=== PATIENT | male | born 1950 | race Caucasian/White ===

== ENCOUNTER 2016-10-30 13:09 | Observation (INO) | payer MEDICARE, OTHER ==
[2016-10-30] MEDS ORDERED: ASPIRIN 81 MG CHEWABLE TABLETS PO ONE (13:18)
--- NOTE | 2016-10-30 13:18 | PDOC ---
History of Present Illness - General Chief Complaint: Chest Pain Stated Complaint: CHEST PAIN Time Seen by Provider: 10/30/16 13:11 History Source: Patient Exam Limitations: No Limitations - History of Present Illness Initial Comments: 10/30/16 13:26 This pt is a 66 yo M with a past medical history of CAD s/p a "small" KS and stent x 2 last year p/w chest pain since last night. The patient reports that the symptoms began last night at 10PM while . The patient reports that he is experiencing a substernal aching pain that has persisted until now. Pain radiates to the left shoulder Pain reproducible when palpating the center of the chest No associated nausea, diaphoresis, radiation to the back or jaw Upon arrival to the ER, pt stated pain was 4/10 Pain has mostly resolved since getting Nitro Pt denies chest wall trauma or bruising. 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 PMH: CAD, HTN PSH: denies Meds: please see MAR ALL: NKDA Social: Pt denies alcohol use, tobacco use, or recreational drug use. 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 HEAD, EYES, EARS, NOSE AND THROAT: No: change in vision, ear pain, discharge, sore throat, throat swelling. CARDIOVASCULAR: (+) chest pain No: lightheadedness, palpitations, syncope RESPIRATORY: No: cough, shortness of breath, wheezing, hemoptysis, stridor. GASTROINTESTINAL: No: nausea, vomiting, diarrhea, abdominal cramping, rectal bleeding, constipation. GENITOURINARY: No: dysuria, hematuria, frequency, urgency, flank pain. MUSCULOSKELETAL: No: back pain, neck pain, joint pain, muscle swelling or pain SKIN AND BREASTS: No: lesions, pallor, rash or easy bruising. NEUROLOGIC: No: headache, vertigo, paresthesias, weakness ENDOCRINE: No: unexplained weight gain or loss HEMATOLOGIC/LYMPHATIC: No: anemia, easy bleeding, swelling nodes. BLOOD PRESSURE r: 158/91 l: 189/99 GENERAL: The patient is in no acute distress. HEAD: Normal with no signs of trauma. EYES: PERRLA, EOMI, sclera anicteric, conjunctiva clear. ENT: Ears normal, nares patent, oropharynx clear without exudates. Moist mucous membranes. NECK: Normal range of motion, supple without lymphadenopathy, JVD, or masses. LUNGS: Breath sounds equal, clear to auscultation bilaterally. No wheezes, and no crackles. HEART: Regular rate and rhythm, normal S1 and S2 without murmur, rub or gallop. (+) chest wall tenderness ABDOMEN: Soft, nontender, normoactive bowel sounds. No guarding, no rebound. No masses palpable. EXTREMITIES: Normal range of motion, no edema. No clubbing or cyanosis. No erythema, or tenderness. NEUROLOGICAL: Cranial nerves II through XII grossly intact. Normal speech. No focal neurological deficits. MUSCULOSKELETAL: Back non-tender to palpation, no CVA tenderness SKIN: Warm, Dry, normal turgor, no rashes or lesions noted. 10/30/16 13:42 10/30/16 13:45 10/30/16 13:48 10/30/16 14:31 Past History - Past Medical History Allergies/Adverse Reactions: Allergies Allergy/AdvReac Type Severity Reaction Status Date / Time No Known Allergies Allergy Verified 10/30/16 13:14 Home Medications: Ambulatory Orders Clopidogrel Bisulfate [Plavix -] 75 mg PO DAILY 10/30/16 Losartan Potassium [Cozaar -] 50 mg PO DAILY 10/30/16 Metoprolol Succinate [Toprol Xl] 100 mg PO DAILY 10/30/16 - Surgical History Cardiac Surgery: Yes (STENTX2) - Psycho/Social/Smoking Cessation Hx Anxiety: No Suicidal Ideation: No Smoking History: Never smoked Hx Alcohol Use: No Drug/Substance Use Hx: No Substance Use Type: None Cardiac Specific PMH - Complaint Specific PMHX Myocardial Infarction: Yes (STENTS 2) *Physical Exam - Vital Signs Last Vital Signs Temp Pulse Resp BP Pulse Ox 98.6 F 57 L 18 160/88 100 10/31/16 05:00 10/31/16 05:00 10/31/16 05:00 10/31/16 05:00 10/30/16 19:26 Heart Score/ECG Review - History History: Highly suspicious - Electrocardiogram EKG: Non specific repolarization disturbance - Age Age: >/= 65 - Risk Factors Risk Factors Heart Score: Yes Hx Hypertension, Yes Hx Obesity Based on the list above the patient has:: 1-2 risk factors - Troponin Troponin: </= normal limit - Score Heart Score - Total: 6 #1 ECG reviewed & interpreted by me at: 13:17 10/30/16 13:17 Twelve-lead EKG was performed and reviewed by me. There is normal sinus rhythm with a normal rate of 69 bpm. The axis is normal. The intervals are normal - pr: 146ms, QRS:70ms, QTc:422ms. There are no ST elevations or depressions. T wave biphasic v4-v5 ED Treatment Course - LABORATORY CBC & Chemistry Diagram: 10/30/16 13:21 10/30/16 13:21 - ADDITIONAL ORDERS Additional order review: 10/30/16 13:21 RBC 4.91 MCV 91.0 MCHC 32.2 RDW 12.7 MPV 8.7 Neutrophils % 45.5 Lymphocytes % 43.7 H Monocytes % 8.3 Eosinophils % 1.4 Basophils % 1.1 - RADIOLOGY Radiology Studies Ordered: Category Date Time Status CHEST X-RAY PORTABLE* [RAD] Stat Radiology 10/30/16 13:20 Completed - Medications Given in the ED: ED Medications Discontinued Medications Generic Name Dose Route Start Last Admin Trade Name Freq PRN Reason Stop Dose Admin Aspirin 162 mg 10/30/16 13:18 10/30/16 13:30 Asa - PO 10/30/16 13:19 162 mg ONCE ONE Administration Losartan Potassium 50 mg 10/30/16 18:17 10/30/16 18:59 Cozaar - PO 10/30/16 18:18 50 mg ONCE ONE Administration Nitroglycerin 0.4 mg 10/30/16 13:19 10/30/16 13:30 Nitrostat - SL 10/30/16 13:20 0.4 mg ONCE ONE Administration Nitroglycerin 0.4 mg 10/30/16 14:27 10/30/16 14:37 Nitrostat - SL 10/30/16 14:28 0.4 mg ONCE ONE Administration Medical Decision Making - Medical Decision Making Will do: labs CXR EKG Pt is high risk, would place on observation 10/30/16 13:37 Laboratory Tests 10/30/16 13:21 WBC 6.4 Hgb 14.4 Hct 44.7 Plt Count 271 Neutrophils % 45.5 Lymphocytes % 43.7 H 10/30/16 13:45 Laboratory Tests 10/30/16 10/30/16 10/30/16 12:40 13:21 13:21 INR 1.01 Sodium 135 L Potassium 3.7 Chloride 100 Carbon Dioxide 27 BUN 17 Creatinine 1.0 Random Glucose 90 Creatine Kinase 124 Troponin I < 0.03 L Will repeat blood pressures ? need for CTA r/o dissection? CXR with NO mediastinal widening Repeated: L: 164/90 R: 172/92 10/30/16 14:36 case reviewed with FIELD KILN BURNER dajuan Will place on observation, telemetry Call placed to Freelance Designer 10/30/16 14:38 Clinical impression: Chest pain 10/30/16 15:39 *DC/Admit/Observation/Transfer Diagnosis at time of Disposition: Chest pain Qualifiers: Chest pain type: unspecified Qualified Code(s): R07.9 - Chest pain, unspecified - Discharge Dispostion Condition at time of disposition: Stable Admit: Yes
[2016-10-30] MEDS ORDERED: NITROGLYCERIN SUBLINGUAL 1/150 0.4 MG TAB SL ONE ×2 (13:19→14:27)
[2016-10-30] MEDS ORDERED: ASPIRIN 81 MG CHEWABLE TABLETS ONE (13:27)
[2016-10-30] MEDS ORDERED: NITROGLYCERIN SUBLINGUAL 1/150 0.4 MG TAB ONE (13:28)
[2016-10-30 13:33] LABS: BASOPHIL 1.1 % (0-2.0); EOSINOPHIL 1.4 % (0-4.5); MCH 29.3 pg (25.7-33.7); MCHC 32.2 g/dl (32.0-35.9); MEAN PLT VOLUME 8.7 fl (7.5-11.1); NEUTROPHILS 45.5 % (42.8-82.8); PLATELET COUNT 271 K/MM3 (134-434); RDW 12.7 % (11.9-15.9); WHITE BLOOD COUNT 6.4 K/mm3 (4.0-10.0)
[2016-10-30 13:50] LABS: INR 1.01 (0.82-1.09)
[2016-10-30 13:54] LABS: ALBUMIN 3.9 g/dl (3.5-5.0); ALK PHOS 83 U/L (32-92); ANION GAP 8 (8-16); BILIRUBIN,TOTAL 1.2 mg/dl (0.2-1.0); CALCIUM 9.2 mg/dl (8.4-10.2); CO2 27 mmol/L (22-28); GLUCOSE,RANDOM 90 mg/dl (74-106); SGOT/AST 22 U/L (10-42); SGPT/ALT 20 U/L (10-40); TOT PROT 6.7 g/dl (6.4-8.3)
[2016-10-30 13:55] LABS: CPK(DFH) 124 IU/L (38-174)
[2016-10-30 14:18] LABS: TROPONIN I (DFP) < 0.03 ng/ml (0.03-0.50)
[2016-10-30 15:58] VITALS: BMI 29.2
--- NOTE | 2016-10-30 18:06 | CONSULT ---
Consult Consult Specialty:: Cardiology Referred by:: Dr Cuevas Reason for Consultation:: CP - History of Present Illness History of Present Illness: 66 yo male with history of HTN, presented to ER at [facility] on 01/16/16 with chest pain while sleeping -> found to have inferior STEMI -> cath showed 99% mRCA -> PCI/SAURABH stents X 2. EF was normal He now presents with resting CP which started since 10 PM last night and has been persistent at 01/04-. received 2 SL NTG -. improved to 1-11/06. No accompanying symptoms except for a headache last night. He took his BP today - . was 199/90 (was lower last night when he had the PATEL) -. in eER , his BP was 200/110. 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 He walks 2-3 times a week w/o symptoms. Cardiac cath (01/16/16) 99% stenosis in the mid RCA. Stenosis opened up with 2 stents. Stent sizes: Resolute 3.5mm x 12mm 4.0 mm x 9 mm Balloon expanded the stents. CRISTIANE 3 flow achieved No complications were noted Access site closed with angioseal. Other lesions: 80% lesion in ramus intermedius branch 85% lesion in prox OM1 80% lesion in the distal OM1 LVEDP 24 Echo 01/17/16 Normal study. Findings Procedure Quality: Acoustic windows are overall adequate. Left Atrium: Normal left atrial size. Left Ventricle: Normal left ventricular size. Normal left ventricular wall motion and ejection fraction. Estimated ejection fraction: 65.0 %. Right Atrium: Normal right atrial size. Right Ventricle: Normal right ventricular size. Normal right ventricular function. Aortic Valve: Normal aortic valve. Mitral Valve: Normal mitral valve. Tricuspid Valve: Normal tricuspid valve. Mild tricuspid valve regurgitation. Pulmonic Valve: Normal pulmonic valve. Arteries: Normal sized aortic root. Pericardium/Pleura: No pericardial effusion. - History Source History Provided By: Patient - Past Medical History Cardio/Vascular: Yes: CAD (inf STEMI in 01/10 -. RCA stents), HTN - Alcohol/Substance Use Hx Alcohol Use: Yes (rarely) History of Substance Use: reports: None - Smoking History Smoking history: Never smoked - Social History Place of : Other () Home Medications - Allergies Allergies/Adverse Reactions: Allergies Allergy/AdvReac Type Severity Reaction Status Date / Time No Known Allergies Allergy Verified 10/30/16 13:14 - Home Medications Home Medications: Ambulatory Orders Clopidogrel Bisulfate [Plavix -] 75 mg PO DAILY 10/30/16 Losartan Potassium [Cozaar -] 50 mg PO DAILY 10/30/16 Metoprolol Succinate [Toprol Xl] 100 mg PO DAILY 10/30/16 Family Disease History - Family Disease History Family History: Denies (no premature CAD) Review of Systems - Review of Systems Constitutional: reports: No Symptoms Eyes: reports: No Symptoms HENT: reports: No Symptoms Neck: reports: No Symptoms Cardiovascular: reports: Chest Pain Respiratory: reports: No Symptoms Gastrointestinal: reports: No Symptoms Genitourinary: reports: No Symptoms Integumentary: reports: No Symptoms Neurological: reports: Headache Physical Exam Vital Signs: Vital Signs Temperature 98.7 F 10/30/16 15:31 Pulse Rate 57 L 10/30/16 15:31 Respiratory Rate 18 10/30/16 15:31 Blood Pressure 166/89 10/30/16 15:31 O2 Sat by Pulse Oximetry (%) 100 10/30/16 15:31 Constitutional: Yes: No Distress Eyes: Yes: Conjunctiva Clear HENT: Yes: Atraumatic Neck: Yes: Supple Cardiovascular: Yes: Regular Rate and Rhythm. No: Murmur Respiratory: Yes: CTA Bilaterally Gastrointestinal: Yes: Normal Bowel Sounds, Soft. No: Tenderness Edema: No Peripheral Pulses WNL: Yes Neurological: Yes: Alert, Oriented Psychiatric: Yes: Alert, Oriented Imaging - Results Chest X-ray: Report Reviewed, Image Reviewed EKG: Report Reviewed, Image Reviewed (SR w/o acute changes) Assessment/Plan 66 yo male with HTN, CAD -. inf STEMI in 01/10 -. RCA stents, here with 16 hr of CP -. EKG w/o acute changes and CE neg X1. BP was very high however, a likely culprit,. Pt says he's been under a lot of stress because of tax season and thinks that may be the issue. Certainly stress may have led to the elevated BP (which he says is usually 130s/ 80s), causing CP. No evidence of acute Mi so far. No CHF Doubt aortic dissection -. CXR not suggestive and pt HD stable Consider esophageal/stomach etiology Should be on statin -. stopped by PMD Rec: Losartan 50 now Continue toprol XL 100/d Increase losartan to 100 daily Continue ASA and plavix Fasting lipids -> statin dose accordingly Consider empiric PPI. Thanks! We'll follow!
[2016-10-30] MEDS ORDERED: LOSARTAN POTASSIUM 50 MG TABLET (FP) PO ONE (18:17)
--- NOTE | 2016-10-30 19:59 | HP ---
CHIEF COMPLAINT: Chest Pain PCP: Dr. May Delivery Engineer: Devin HISTORY OF PRESENT ILLNESS: This is a 66 year old man with a past medical history of HTN, CAD (PCI/SAURABH stents X 2). Who presents to the emergency department with chest pain x last night. Patient reports while at rest he began to have midsternal chest pressure radiating to his left arm without SOB. Patient reports that the pain was constant and continued into this afternoon. Patient states" the pain was similar to when I had my heart attack". Patient reports decrease pain and pressure since being medicated in the ED. Patient denies fever, chills, cough, SOB, AP, N/V/D, constipation, dysuria. ER course was notable for: (1) Cardiac Enzyme negx1 (2) EKG- NSR Nonspecific T wave abnormality (3) Chest Xray- No acute pathology Recent Travel: None PAST MEDICAL HISTORY: HTN CAD PAST SURGICAL HISTORY: PCI/SAURABH stents x2 Social History: Smoking: Never Alcohol: Former Drugs: None Lives with family Family History: Cardiac: Mother, Brother, Sister Diabetes: Brother Allergies No Known Allergies Allergy (Verified 10/30/16 13:14) HOME MEDICATIONS: Home Medications Medication Instructions Recorded Clopidogrel Bisulfate [Plavix -] 75 mg PO DAILY 10/30/16 Losartan Potassium [Cozaar -] 50 mg PO DAILY 10/30/16 Metoprolol Succinate [Toprol Xl] 100 mg PO DAILY 10/30/16 REVIEW OF SYSTEMS CONSTITUTIONAL: Absent: fever, chills, diaphoresis, generalized weakness, malaise, loss of appetite, weight change HEENT: Absent: rhinorrhea, nasal congestion, throat pain, throat swelling, difficulty swallowing, mouth swelling, ear pain, eye pain, visual changes CARDIOVASCULAR: chest pain Absent: syncope, palpitations, irregular heart rate, lightheadedness, peripheral edema RESPIRATORY: Absent: cough, shortness of breath, dyspnea with exertion, orthopnea, wheezing, stridor, hemoptysis GASTROINTESTINAL: Absent: abdominal pain, abdominal distension, nausea, vomiting, diarrhea, constipation, melena, hematochezia GENITOURINARY: Absent: dysuria, frequency, urgency, hesitancy, hematuria, flank pain, genital pain MUSCULOSKELETAL: Absent: myalgia, arthralgia, joint swelling, back pain, neck pain SKIN: Absent: rash, itching, pallor HEMATOLOGIC/IMMUNOLOGIC: Absent: easy bleeding, easy bruising, lymphadenopathy, frequent infections ENDOCRINE: Absent: unexplained weight gain, unexplained weight loss, heat intolerance, cold intolerance NEUROLOGIC: Absent: headache, focal weakness or paresthesias, dizziness, unsteady gait, seizure, mental status changes, bladder or bowel incontinence PSYCHIATRIC: Absent: anxiety, depression, suicidal or homicidal ideation, hallucinations. PHYSICAL EXAMINATION Vital Signs - 24 hr 10/30/16 15:31 Temperature 98.7 F Pulse Rate 57 L Respiratory 18 Rate Blood Pressure 166/89 O2 Sat by Pulse 100 Oximetry (%) GENERAL: Awake, alert, and fully oriented, in no acute distress. HEAD: Normal with no signs of trauma. EYES: Pupils equal, round and reactive to light, extraocular movements intact, sclera anicteric, conjunctiva clear. No lid lag. EARS, NOSE, THROAT: Ears normal, nares patent, oropharynx clear without exudates. Moist mucous membranes. NECK: Normal range of motion, supple without lymphadenopathy, JVD, or masses. LUNGS: Breath sounds equal, clear to auscultation bilaterally. No wheezes, and no crackles. No accessory muscle use. HEART: Regular rate and rhythm, normal S1 and S2 without murmur, rub or gallop. Non-reproducible CP ABDOMEN: Soft, nontender, not distended, normoactive bowel sounds, no guarding, no rebound, no masses. No hepatomegaly or splenomegaly. MUSCULOSKELETAL: Normal range of motion at all joints. No bony deformities or tenderness. No CVA tenderness. UPPER EXTREMITIES: 2+ pulses, warm, well-perfused. No cyanosis. No clubbing. Cap refill <2 seconds. No peripheral edema. LOWER EXTREMITIES: 2+ pulses, warm, well-perfused. No calf tenderness. No peripheral edema. NEUROLOGICAL: Cranial nerves II-XII intact. Normal speech. Normal gait. PSYCHIATRIC: Cooperative. Good eye contact. Appropriate mood and affect. SKIN: Warm, dry, normal turgor, no rashes or lesions noted. Laboratory Results - last 24 hr 10/30/16 10/30/16 10/30/16 12:40 13:21 13:21 WBC 6.4 RBC 4.91 Hgb 14.4 Hct 44.7 MCV 91.0 MCHC 32.2 RDW 12.7 Plt Count 271 MPV 8.7 Neutrophils % 45.5 Lymphocytes % 43.7 H Monocytes % 8.3 Eosinophils % 1.4 Basophils % 1.1 INR 1.01 Sodium Potassium Chloride Carbon Dioxide Anion Gap BUN Creatinine Creat Clearance w eGFR Random Glucose Calcium Magnesium Total Bilirubin AST ALT Alkaline Phosphatase Creatine Kinase 124 Troponin I < 0.03 L Total Protein Albumin 10/30/16 13:21 WBC RBC Hgb Hct MCV MCHC RDW Plt Count MPV Neutrophils % Lymphocytes % Monocytes % Eosinophils % Basophils % INR Sodium 135 L Potassium 3.7 Chloride 100 Carbon Dioxide 27 Anion Gap 8 BUN 17 Creatinine 1.0 Creat Clearance w eGFR > 60 Random Glucose 90 Calcium 9.2 Magnesium 2.0 Total Bilirubin 1.2 H AST 22 ALT 20 Alkaline Phosphatase 83 Creatine Kinase Troponin I Total Protein 6.7 Albumin 3.9 ASSESSMENT/PLAN: This is a 66 y/o man with a PMHs of: HTN, CAD (PCI/SAURABH stents x2). Who presented to the ED with Chest Pain x 1 day. Placed on Telemetry Observation for Chest Pain r/o ACS for further evaluation of their emergent condition. Plan: 1. Chest Pain r/o ACS - Hx [place], (PCI/SAURABH stents x2) - HEART Score 6 - Continue cardiac monitoring - CE neg x1 - Serial Enzymes - Cardiology following - NTG SLx2, Asa, Losartan given in ED - Will continue Asa, BB, Plavix, and Losartan increased dose per Cardiology recommendation - Last Echo 01/17/16 normal study 2. Hypertension - Monitor BP - Continue home meds - Low Na Diet - Monitor renal function 3. F/E/N - Tolerates PO fluids - Replete lytes prn - Low Na diet 4. DVT/PPI Prophylaxis - OOB - SCDs - Consider ACs if LOS > 48 hrs - PPI Code Status: Full Code Problem List - Problem (1) Chest pain Code(s): R07.9 - CHEST PAIN, UNSPECIFIED Qualifiers: Chest pain type: unspecified Qualified Code(s): R07.9 - Chest pain, unspecified (2) HTN (hypertension) Code(s): I10 - ESSENTIAL (PRIMARY) HYPERTENSION (3) CAD (coronary artery disease) Code(s): I25.10 - ATHSCL HEART DISEASE OF [place] CORONARY ARTERY W/O ANG PCTRS (4) DVT prophylaxis Code(s): [id number] - Visit type - Emergency Visit Emergency Visit: Yes ED Registration Date: 10/30/16 Care time: The patient presented to the Emergency Department on the above date and was hospitalized for further evaluation of their emergent condition. - New Patient This patient is new to me today: Yes Date on this admission: 10/30/16 - Critical Care Critical Care patient: No
[2016-10-30 21:30] LABS: CPK(DFH) 108 IU/L (38-174)
[2016-10-30 21:52] LABS: TROPONIN I (DFP) < 0.03 ng/ml (0.03-0.50)
[2016-10-30] MEDS: FAMOTIDINE 20 MG/50 ML IVPB 50 ML IVPB SCH (21:56)
[2016-10-31 06:27] VITALS: TEMP 98.6
[2016-10-31 07:01] LABS: TROPONIN I < 0.02 ng/ml (0.00-0.05)
--- NOTE | 2016-10-31 07:26 | PN ---
Progress Note, Physician History of Present Illness: No chest pain. Doing well. - Current Medication List Current Medications: Active Medications Aspirin (Asa -) 81 mg PO DAILY [facility] Clopidogrel Bisulfate (Plavix -) 75 mg PO DAILY [facility] Famotidine/Sodium Chloride (Pepcid 20 Mg Premixed Ivpb -) 50 mls @ 100 mls/hr IVPB BID [facility] Last Admin: 10/30/16 21:56 Dose: 100 mls/hr Losartan Potassium (Cozaar -) 100 mg PO DAILY [facility] Metoprolol Succinate (Toprol Xl -) 100 mg PO DAILY [facility] - Objective Vital Signs: Vital Signs Temperature 98.6 F 10/31/16 05:00 Pulse Rate 57 L 10/31/16 05:00 Respiratory Rate 18 10/31/16 05:00 Blood Pressure 160/88 10/31/16 05:00 O2 Sat by Pulse Oximetry (%) 100 10/30/16 19:26 Constitutional: Yes: Well Nourished, No Distress Eyes: Yes: Conjunctiva Clear, EOM Intact HENT: Yes: Atraumatic, Normocephalic Cardiovascular: Yes: Regular Rate and Rhythm Respiratory: Yes: CTA Bilaterally Gastrointestinal: Yes: Normal Bowel Sounds, Soft. No: Tenderness Edema: No Neurological: Yes: Alert, Oriented, Cran Nerves II-XII Intact Labs: INR, PTT INR 1.01 (0.82-1.09) 10/30/16 13:21 Assessment/Plan 66 yo male with HTN, inferior STEMI in 12/2015 -> PCI [facility] RCA at [facility]. Admitted with resting chest pain and elevated BP. Elevated BP likely due to increased stress during season. No ischemic ECG changes and cardiac enzymes (-) x3. 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 Patient was instructed to make sooner appt than his currently scheduled appt on 11/24/16. Would discharge patient on the higher dose of losartan 100 mg po daily. Given first dose now. Continue metoprolol succinate 100mg po daily. Continue aspirin and Plavix. Patient should ideally be in statin therapy but will defer restarting this medication to patient's PMD, who reportedly stopped this medication. Will see prn. Call with questions.
[2016-10-31] MEDS: LOSARTAN POTASSIUM 50 MG TABLET (FP) PO SCH ×2 (07:45→10:38)
[2016-10-31 08:14] VITALS: PULSE 62
[2016-10-31 08:15] LABS: BASOPHIL 0.6 % (0-2.0); EOSINOPHIL 2.1 % (0-4.5); MCH 28.9 pg (25.7-33.7); MCHC 31.1 g/dl (32.0-35.9); MEAN CELL VOLUME 92.9 fl (80-96); MEAN PLT VOLUME 8.8 fl (7.5-11.1); NEUTROPHILS 44.7 % (42.8-82.8); PLATELET COUNT 267 K/MM3 (134-434); RDW 12.8 % (11.9-15.9); WHITE BLOOD COUNT 4.7 K/mm3 (4.0-10.0)
[2016-10-31 08:22] LABS: CALCIUM 9.2 mg/dl (8.4-10.2); CREATININE 1.1 mg/dl (0.6-1.3); PHOSPHOROUS 3.9 mg/dl (2.5-4.6)
[2016-10-31 08:25] LABS: CHOLESTEROL 189 mg/dl
[2016-10-31] MEDS ORDERED: ASPIRIN 81 MG CHEWABLE TABLETS PO SCH (10:00)
[2016-10-31] MEDS ORDERED: METOPROLOL SUCCINATE 100 MG TAB.SR.24H (FP) PO SCH (10:00)
[2016-10-31] MEDS ORDERED: CLOPIDOGREL BISULFATE 75 MG TABLET (FP) PO SCH (10:00)
[2016-10-31] MEDS ORDERED: LOSARTAN POTASSIUM 50 MG TABLET (FP) PO SCH (10:00)
[2016-10-31 10:22] VITALS: BP 168/87
--- NOTE | 2016-10-31 10:25 | DS ---
Physical Exam: SUBJECTIVE: Patient seen and examined. currently asymptomatic. states pain resolved by arrival to the ER. had similar episode when he had his stents placed. he was asymptomatic to the days leading up to today. walks 45 minutes outside daily (up and down hills) in the cold and never experiences CP or SOB. has not had stress test since his stents were placed last year. claims medication compliance. is unaware why he is not on statin therapy. states his PMD told him to stop but does not know why. denies any muscle aches OBJECTIVE: Vital Signs Period Temp Pulse Resp BP Sys/Fuller Pulse Ox Last 24 Hr 98.3 F-98.7 F 57-65 18-18 150-166/82-93 96-100 PHYSICAL EXAM GENERAL: The patient is awake, alert, and fully oriented, in no acute distress. HEAD: Normal with no signs of trauma. EYES: PERRL, extraocular movements intact, sclera anicteric, conjunctiva clear. ENT: Ears normal, nares patent, oropharynx clear without exudates, moist mucous membranes. NECK: Trachea midline, full range of motion, supple. LUNGS: Breath sounds equal, clear to auscultation bilaterally, no wheezes, no crackles, no accessory muscle use. HEART: Regular rate and rhythm, S1, S2 without murmur, rub or gallop. ABDOMEN: Soft, nontender, nondistended, normoactive bowel sounds, no guarding, no rebound, no hepatosplenomegaly, no masses. EXTREMITIES: 2+ pulses, warm, well-perfused, no edema. NEUROLOGICAL: Cranial nerves II through XII grossly intact. Normal speech, gait not observed. PSYCH: Normal mood, normal affect. SKIN: Warm, dry, normal turgor, no rashes or lesions noted. LABS Laboratory Results - last 24 hr 10/30/16 10/31/16 10/31/16 21:00 05:00 05:00 WBC RBC Hgb Hct MCV MCHC RDW Plt Count MPV Neutrophils % Lymphocytes % Monocytes % Eosinophils % Basophils % Sodium Potassium Chloride Carbon Dioxide Anion Gap BUN Creatinine Random Glucose Calcium Phosphorus Magnesium Creatine Kinase 108 Cancelled 87 Troponin I < 0.03 L Cancelled < 0.02 Triglycerides Cholesterol Total LDL Cholesterol HDL Cholesterol 10/31/16 10/31/16 10/31/16 07:15 07:15 07:15 WBC 4.7 RBC 4.72 Hgb 13.6 Hct 43.8 MCV 92.9 MCHC 31.1 L RDW 12.8 Plt Count 267 MPV 8.8 Neutrophils % 44.7 Lymphocytes % 40.5 H Monocytes % 12.1 H Eosinophils % 2.1 Basophils % 0.6 Sodium 141 Potassium 4.4 Chloride 105 Carbon Dioxide 30 H Anion Gap 6 L BUN 21 H D Creatinine 1.1 Random Glucose 102 Calcium 9.2 Phosphorus 3.9 Magnesium 2.0 Creatine Kinase Troponin I Triglycerides 141 Cholesterol 189 Total LDL Cholesterol 122 HDL Cholesterol 39 HOSPITAL COURSE: Date of Admission:10/30/16 Date of Discharge: 10/31/16 Admitted diagnosis: atypical CP Pre hospital course 66 year old man with a past medical history of HTN, CAD (PCI/SAURABH stents X 2). Who presents to the emergency department with chest pain x last night. Patient reports while at rest he began to have midsternal chest pressure radiating to his left arm without SOB. Patient reports that the pain was constant and continued into this afternoon. Patient states" the pain was similar to when I had my heart attack". Patient reports decrease pain and pressure since being medicated in the ED. Patient denies fever, chills, cough, SOB, AP, N/V/D, constipation, dysuria. Subsequent hospital course Tele observation. evaluated by cardio. cardiac enzymes neg x3. no events on tele monitoring. started on asa. losartan increased to improve BP control. d/c home on asa and increased dose of losartan. encouraged to follow up with PMD and cardio this week. recommend initiating statin therapy. verbalized understanding and agreed to plan. Minutes to complete discharge: 45 Discharge Summary Reason For Visit: CHEST PAIN Current Active Problems CAD (coronary artery disease) (Acute) Chest pain (Acute) DVT prophylaxis (Acute) HTN (hypertension) (Acute) Condition: Improved - Instructions Diet, Activity, Other Instructions: Your home medications have changed. refer to medication list for these changes. Follow a heart healthy diet, low salt and low cholesterol. Follow up with your primary care doctor (Dr. May) this week. Discuss with him starting a cholesterol lowering medication as this will likely benefit you. Follow up with your industrial sweeper cleaner this week, you may require further testing including a stress test IF your pain return, report back to the hospital. Disposition: HOME - Home Medications Comprehensive Discharge Medication List: Ambulatory Orders Clopidogrel Bisulfate [Plavix -] 75 mg PO DAILY 10/30/16 Metoprolol Succinate [Toprol Xl] 100 mg PO DAILY 10/30/16 Aspirin [ASA -] 81 mg PO DAILY #30 tab.chew 10/31/16 Losartan Potassium 100 mg PO DAILY #30 tablet 10/31/16 This patient is new to me today: Yes Date on this admission: 10/31/16 Emergency Visit: Yes ED Registration Date: 10/30/16 Care time: The patient presented to the Emergency Department on the above date and was hospitalized for further evaluation of their emergent condition. Critical Care patient: No - Discharge Referral Referred to [facility] No
[2016-10-31] MEDS: FAMOTIDINE 20 MG/50 ML IVPB 50 ML IVPB SCH (10:38)
--- NOTE | 2016-10-31 18:08 | EKG ---
Test Reason : Blood Pressure : / mmHG Vent. Rate : 059 BPM Atrial Rate : 059 BPM P-R Int : 148 ms QRS Dur : 080 ms QT Int : 446 ms P-R-T Axes : 055 005 035 degrees QTc Int : 441 ms SINUS BRADYCARDIA POSSIBLE LEFT ATRIAL ENLARGEMENT NONSPECIFIC T WAVE ABNORMALITY ABNORMAL ECG WHEN COMPARED WITH ECG OF 30-OCT-2016 13:16, NO SIGNIFICANT CHANGE WAS FOUND Confirmed by BEST SOLARES MD ([id number]) on 10/31/2016 6:08:20 PM Referred By: Confirmed By:BEST SOLARES MD
--- NOTE | 2016-10-31 18:10 | EKG ---
Test Reason : Blood Pressure : / mmHG Vent. Rate : 069 BPM Atrial Rate : 069 BPM P-R Int : 146 ms QRS Dur : 070 ms QT Int : 394 ms P-R-T Axes : 058 012 030 degrees QTc Int : 422 ms NORMAL SINUS RHYTHM NONSPECIFIC T WAVE ABNORMALITY ABNORMAL ECG NO PREVIOUS ECGS AVAILABLE Confirmed by BEST SOLARES MD ([id number]) on 10/31/2016 6:10:11 PM Referred By: EDDY CUELLAR Confirmed By:BEST SOLARES MD
== END 2016-10-31 11:45 | disposition home or self-care (01) ==
LOC: FER 13:09 → INTOOBSV 14:33 → FM/S 14:33 → UNDOADMOB 14:33 → FM/S 14:39
PROVIDERS: ADMIT Internal Medicine; ATTEND Nurse Practitioner Family
DX: R07.89 Other chest pain (principal); I25.10 Atherosclerotic heart disease of native coronary artery without angina pectoris; I10 Essential (primary) hypertension; I25.2 Old myocardial infarction; Z95.5 Presence of coronary angioplasty implant and graft
CPT/HCPCS: 36415; 71010-TC; 80048; 80053; 80061; 82550; 83036; 83735; 84100; 84484; 85025; 85610; 93005; 99285-25; G0378

== ENCOUNTER 2017-02-27 12:04 | Emergency (ER) | payer MEDICARE, OTHER ==
[2017-02-27 12:35] VITALS: PULSE 61; TEMP 98.4; BMI 29.8
[2017-02-27 13:35] VITALS: BP 160/84
[2017-02-27 13:45] LABS: BASOPHIL 3.1 % (0-2.0); EOSINOPHIL 1.1 % (0-4.5); MCH 31.1 pg (25.7-33.7); MCHC 33.7 g/dl (32.0-35.9); MEAN CELL VOLUME 92.3 fl (80-96); MEAN PLT VOLUME 8.5 fl (7.5-11.1); NEUTROPHILS 42.9 % (42.8-82.8); PLATELET COUNT 326 K/MM3 (134-434); RDW 12.6 % (11.9-15.9); WHITE BLOOD COUNT 7.1 K/mm3 (4.0-10.8)
--- NOTE | 2017-02-27 13:49 | PDOC ---
History of Present Illness - General Chief Complaint: Pain Stated Complaint: HEAD SPASM Time Seen by Provider: 02/27/17 12:16 - History of Present Illness Initial Comments: 02/27/17 14:53 67 yo M with ho HTN, here wtih feeling head tingling sensation for 3 days. constant. no mod factors. no change to vision. no headache. no n/v no focal weakness or change to speech. thought maybe due to fact bp elevated. did take his bp meds this am. has apointment scheduled for wednesday with Cindy Rojo. no cp no sob. no leg swelling. did not take any medication prior to arrival. Past History - Past Medical History Allergies/Adverse Reactions: Allergies Allergy/AdvReac Type Severity Reaction Status Date / Time No Known Allergies Allergy Verified 10/30/16 13:14 Home Medications: Ambulatory Orders Clopidogrel Bisulfate [Plavix -] 75 mg PO DAILY 10/30/16 Metoprolol Succinate [Toprol Xl] 100 mg PO DAILY 10/30/16 Aspirin [ASA -] 81 mg PO DAILY #30 tab.chew 10/31/16 Losartan Potassium 100 mg PO DAILY #30 tablet 10/31/16 Cardiac Disorders: Yes HTN: Yes - Surgical History Cardiac Surgery: Yes (STENTX2) - Psycho/Social/Smoking Cessation Hx Anxiety: No Suicidal Ideation: No Smoking History: Never smoked Hx Alcohol Use: No Drug/Substance Use Hx: No Substance Use Type: None Hx Substance Use Treatment: No Review of Systems - Review of Systems Constitutional: No: Chills, Diaphoresis, Fever HEENTM: No: Blurred Vision Respiratory: No: Cough, Orthopnea Cardiac (ROS): No: Chest Pain, Edema ABD/GI: No: Abdominal Distended : No: Burning Musculoskeletal: No: Back Pain, Gout Integumentary: No: Bruising Neurological: Yes: Other (tingling head) All Other Systems: Reviewed and Negative *Physical Exam - Vital Signs Last Vital Signs Temp Pulse Resp BP Pulse Ox 98.4 F 61 16 160/84 98 02/27/17 12:04 02/27/17 12:04 02/27/17 12:04 02/27/17 13:25 02/27/17 12:04 - Physical Exam General Appearance: Yes: Nourished, Appropriately Dressed HEENT: positive: DOROTHY, Normal ENT Inspection Neck: positive: Trachea midline Respiratory/Chest: positive: Lungs Clear, Normal Breath Sounds. negative: Respiratory Distress Gastrointestinal/Abdominal: positive: Normal Bowel Sounds. 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 intact, Fully Oriented, Alert, Normal Mood/ Affect, Motor Strength 5/5 Heart Score/ECG Review #1 General ECG Interpretation: Sinus Rhythm, Normal Rate (56), Normal Intervals, No acute ischemic changes Compared to previous ECG there are: Other (no change comparison 10/31/16) - ECG Intrepretation Rhythm: Regular Rhythm - [place]: Normal ED Treatment Course - LABORATORY CBC & Chemistry Diagram: 02/27/17 13:40 02/27/17 13:40 - RADIOLOGY Radiology Studies Ordered: Category Date Time Status HEAD CT WITHOUT CONTRAST [CT] Stat CT Scan 02/27/17 13:31 Ordered Medical Decision Making - Medical Decision Making 02/27/17 14:53 02/27/17 14:56 67 yo male wtih h/o HTN here with c/o paresthesia to head. differential electrolyte abnormal, anemia, htn, mass cva. plan ct head, labs ekg . will d/w pt pcp regarding bp medication tylenol if normal dc home. *DC/Admit/Observation/Transfer Diagnosis at time of Disposition: HTN (hypertension), Paresthesia - Discharge Dispostion Disposition: HOME Admit: No - Patient Instructions Printed Discharge Instructions: Hypertension (Alternative Therapy) Additional Instructions: follow up with DR. Damian as scheduled for wednesday. return for any problems or concerns. your test including blood work , EKG and ct of the head are all normal. discuss your blood pressure medication with your doctor at your appointment.
[2017-02-27 14:03] LABS: ALBUMIN 4.1 g/dl (3.5-5.0); ALK PHOS 77 U/L (32-92); ANION GAP 8 (8-16); CALCIUM 9.6 mg/dl (8.4-10.2); CO2 28 mmol/L (22-28); COCKROFT - GAULT 85.08; GLUCOSE,RANDOM 91 mg/dl (74-106); SGOT/AST 25 U/L (10-42); SGPT/ALT 24 U/L (10-40)
[2017-02-27] MEDS ORDERED: ACETAMINOPHEN 325 MG TABLET (FP) PO ONE (14:36)
[2017-02-27] MEDS ORDERED: ACETAMINOPHEN 325 MG TABLET (FP) ONE (14:39)
--- NOTE | 2017-03-01 08:56 | EKG ---
Test Reason : Blood Pressure : / mmHG Vent. Rate : 056 BPM Atrial Rate : 056 BPM P-R Int : 156 ms QRS Dur : 088 ms QT Int : 438 ms P-R-T Axes : 053 007 012 degrees QTc Int : 422 ms SINUS BRADYCARDIA POSSIBLE LEFT ATRIAL ENLARGEMENT NONSPECIFIC T WAVE ABNORMALITY WHEN COMPARED WITH ECG OF 31-OCT-2016 05:58, NO SIGNIFICANT CHANGE WAS FOUND Confirmed by VERNELL ABBOTT MD ([id number]) on 03/01/2017 8:56:01 AM Referred By: YISEL ROSALES Confirmed By:VERNELL ABBOTT MD
== END 2017-02-27 15:18 | disposition home or self-care (01) ==
LOC: FER 12:04
DX: R20.2 Paresthesia of skin (principal); I10 Essential (primary) hypertension; I51.9 Heart disease, unspecified; Z95.5 Presence of coronary angioplasty implant and graft
CPT/HCPCS: 36415; 70450-TC; 80053; 85025; 93005; 99282-25